=== PATIENT | male | born 1970 | race Two or more races ===

== ENCOUNTER 2025-02-26 16:13 | Emergency (ER) | payer MEDICAID ==
[~2025-02-26] VITALS: Ht 170.2 cm; Wt 81.0 kg
[2025-02-26 16:38] VITALS: BP 169/98; PULSE 88; RESP 18; TEMP 98.1; O2SAT 99
[2025-02-26] MEDS ORDERED: HYDROcodone-ACET 10/325MG TAB PO ONE (17:15)
[2025-02-26] MEDS ORDERED: KETOROLAC TROMETH 60MG/2ML VIAL IM ONE (17:15)
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
[2025-02-26] MEDS ORDERED: IBUP-1455 PO (17:54)
[2025-02-26] MEDS ORDERED: HYDR-4902 PO (17:54)
== END 2025-02-26 19:57 | disposition home or self-care (01) ==
LOC: ER 16:13
DX: S39.012A Strain of muscle, fascia and tendon of lower back, initial encounter (principal); S80.12XA Contusion of left lower leg, initial encounter; S80.11XA Contusion of right lower leg, initial encounter; V89.2XXA Person injured in unspecified motor-vehicle accident, traffic, initial encounter; Y93.89 Activity, other specified; Y92.410 Unspecified street and highway as the place of occurrence of the external cause; Y99.8 Other external cause status
CPT/HCPCS: 96372